=== PATIENT | female | born 2000 | race African-American/Black ===

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

== ENCOUNTER 2021-08-21 12:07 | Emergency (ER) | payer OTHER ==
[~2021-08-21] VITALS: Ht 160 cm; Wt 551.1 kg
[2021-08-21 12:17] VITALS: BP 136/59
--- NOTE | 2021-08-21 12:30 | NUR ---
C/O SORE THROAT,LOSS OF APPITITE X 2 DAYS.
--- NOTE | 2021-08-21 13:31 | NUR ---
Cherry lundberg in ED - 08/21/21 at 1401 by [email or web address] MIKE PCR & STREP SWABS DONE.
--- NOTE | 2021-08-21 13:31 | NUR ---
COVID PCR & STREP SWABS DONE.
[2021-08-21] MEDS ORDERED: BENZ1LOZ98 PO (15:30)
[2021-08-21] MEDS ORDERED: IBUP-2213 PO (15:30)
[2021-08-21 16:17] VITALS: BP 136/59
--- NOTE | 2021-08-21 16:17 | NUR ---
Patient discharged with v/s stable. Written and verbal after care instructions given and explained. Patient alert, oriented and verbalized understanding of instructions. Ambulatory with steady gait. All questions addressed prior to discharge. ID band removed. Patient advised to follow up with PMD. Rx of IBUPROFEN & BENZOCAINE/MENTOL given. Patient educated on indication of medication including possible reaction and side effects. Opportunity to ask questions provided and answered.
== END 2021-08-21 16:17 | disposition home or self-care (01) ==
LOC: MED 12:07
DX: J02.9 Acute pharyngitis, unspecified (principal); I10 Essential (primary) hypertension; Z20.822 Contact with and (suspected) exposure to COVID-19; J45.909 Unspecified asthma, uncomplicated; Z79.899 Other long term (current) drug therapy; Z79.1 Long term (current) use of non-steroidal anti-inflammatories (NSAID); Z79.51 Long term (current) use of inhaled steroids
CPT/HCPCS: 87081; 99283; U0003